=== PATIENT | male | born 1980 | race Caucasian/White ===

== ENCOUNTER 2017-02-25 10:21 | Emergency (ER) | payer SELFPAY ==
[~2017-02-25] VITALS: Ht 172.7 cm; Wt 115.5 kg
[~2017-02-25 10:21] MED LIST: ADVI200C9 PO; AMLO5TAB22 PO; ASPI325T PO; BACT800T5 PO; NOVO7030P2 SQ; NOVORP2 SQ
[2017-02-25 10:26] VITALS: BP 144/99; PULSE 95; RESP 16; TEMP 98.3; O2SAT 96
[2017-02-25] MEDS ORDERED: ACETAMINOPHEN/HYDROcodone 325 MG/5 MG TAB PO ONE (11:30)
--- NOTE | 2017-02-25 11:48 | PD ---
HPI Chief Complaint: Musculoskeletal Complaint Time Seen by Provider: 10:50 Travel History International Travel<30 days: No Contact w/Intl Traveler<30days: No Traveled to known affect area: No History of Present Illness HPI 36-year-old female arrives with left anterior chest wall pain after he fell while moving some objects with his friend yesterday. He has pleuritic pain in the area. It's worse while sleeping and with palpation in the ER. He denies shortness of breath at rest. No other injury to report. PFSH Past Medical History Arthritis: No Asthma: No Autoimmune Disease: No Blood Disorders: No Heart Rhythm Problems: No Cancer: No Cardiovascular Problems: No High Cholesterol: No Chemotherapy: No Chest Pain: No Congestive Heart Failure: No COPD: No Cerebrovascular Accident: No Diabetes: Yes Patient Takes Glucophage: No Diminished Hearing: No Endocrine: No Glaucoma: No Genitourinary: No Headaches: No Hepatitis: No Hiatal Hernia: No Hypertension: No Immune Disorder: No Kidney Stones: No Musculoskeletal: Yes Neurologic: No Respiratory: Yes Immunizations Current: Yes Migraines: No Myocardial Infarction: No Renal Failure: No Seizures: No Sickle Cell Disease: No Sleep Apnea: Yes Thyroid Disease: No Ulcer: No Influenza Vaccination: No Past Surgical History Surgical History: No Previous Surgery Abdominal Surgery: No AICD: No Arteriovenous Shunt: No Cardiac Surgery: No Cholecystectomy: No Eye Surgery: No Genitourinary Surgery: No Gynecologic Surgery: No Insulin Pump: No Joint Replacement: No Neurologic Surgery: No Pacemaker: No Thoracic Surgery: No Other Surgery: No Social History Alcohol Use: No Tobacco Use: No Substance Use: No Allergies-Medications (Allergen,Severity, Reaction): Coded Allergies: Penicillin (Verified Allergy, Severe, Anaphylaxis, 02/25/17) PT STATES HE IS NOT SURE WHAT REACTION WAS TO PCN. (ANAPHYLAXIS WAS ALREADY NOTED IN THE COMPUTER) Amoxicillin (Verified Allergy, Mild, Anaphylaxis, 02/25/17) Reported Meds & Prescriptions Reported Meds & Active Scripts Active No Active Prescriptions or Reported Medications Review of Systems General / Constitutional: No: Fever Physical Exam Narrative GENERAL: 36-year-old male pleasant well-nourished well-developed SKIN: Focused skin assessment warm/dry. CARDIOVASCULAR: Regular rate and rhythm. No murmur appreciated. Tenderness palpation left anterior chest wall. RESPIRATORY: No accessory muscle use. Clear to auscultation. Breath sounds equal bilaterally. GASTROINTESTINAL: Abdomen soft, non-tender, nondistended. Hepatic and splenic margins not palpable. MUSCULOSKELETAL: No obvious deformities. No clubbing. No cyanosis. No edema. NEUROLOGICAL: Awake and alert. No obvious cranial nerve deficits. Motor grossly within normal limits. Normal speech. Data Data Last Documented VS Vital Signs Date Time Temp Pulse Resp B/P Pulse Ox O2 Delivery O2 Flow Rate FiO2 02/25/17 10:26 98.3 95 16 144/99 96 Vital signs reviewed Orders Chest, Single Ap (02/25/17 ) Acetamin-Hydrocod 325-5 Mg ([place] 5-325 (02/25/17 11:30) Resp Incentive Spirometry (02/25/17 ) MDM Medical Decision Making Medical Screen Exam Complete: Yes Emergency Medical Condition: Yes Medical Record Reviewed: Yes Differential Diagnosis Rib fracture, rib contusion, pulmonary contusion, splenic injury Narrative Course Left anterior chest wall is minimally tender. There is no bruising or ecchymosis. Patient's vital signs are stable. Chest x-ray appears unremarkable. Lortab and incentive spirometer. Return precautions discussed. Diagnosis Primary Impression: Contusion of rib on left side Qualified Code: S20.212A - Contusion of rib on left side, initial encounter Referrals: Primary Care Physician 2 days Patient Instructions: General Instructions, Narcotic given in the ED Departure Forms: Tests/Procedures Additional Instructions: You have a choice when it comes to health care, and we are glad that you chose [facility]. Hopefully, we have met your expectations on today's visit. You are welcome to return to [facility] at any time, as we are committed to meeting the health care needs of our community. Med/Other Pt SpecificInfo: No Change to Meds Scripts No Active Prescriptions or Reported Meds Disposition: 01 DISCHARGE HOME Condition: Stable William Hua MD February 25, 2017 11:48
[2017-02-25] MEDS ORDERED: HYDR-3533 PO (11:49)
--- NOTE | 2017-02-25 11:54 | RADHPO ---
EXAM DATE/TIME: 02/25/2017 11:26 [place] COMPARISON: No previous studies available for comparison. INDICATIONS : Fall yesterday, left side rib pain. MEDICAL HISTORY : None. SURGICAL HISTORY : None. ENCOUNTER: Initial ACUITY: 2 days PAIN SCORE: 10/10 LOCATION: Left anterior ribs FINDINGS: A single view of the chest demonstrates the lungs to be symmetrically aerated without evidence of mas s, infiltrate or effusion. The cardiomediastinal contours are unremarkable. The osseous structures demonstrate a questionable nondisplaced fracture through the eighth lateral ri b on the left. If it is felt clinically warranted, oblique imaging could be performed for further ass essment. There is no pneumothorax. CONCLUSION: 1. No acute cardiopulmonary findings. 2. Possible nondisplaced left-sided rib fracture. William Agosto MD on February 25, 2017 at 11:51 Board Certified Radiologist. This report was verified electronically.
== END 2017-02-25 12:07 | disposition home or self-care (01) ==
LOC: PHEFT 10:21
DX: S20.212A Contusion of left front wall of thorax, initial encounter (principal); E11.9 Type 2 diabetes mellitus without complications; Z88.0 Allergy status to penicillin; W19.XXXA Unspecified fall, initial encounter
CPT/HCPCS: 71010; 94150; 99283

== ENCOUNTER 2017-08-03 20:03 | Observation (INO) | payer SELFPAY ==
[~2017-08-03] VITALS: Ht 175.3 cm; Wt 96.5 kg
[~2017-08-03 20:03] MED LIST changes: -ADVI200C9 PO; -AMLO5TAB22 PO; -ASPI325T PO; -BACT800T5 PO; +HYDR-3533 PO; -NOVO7030P2 SQ; -NOVORP2 SQ
[2017-08-03 21:00] VITALS: BP 139/72; PULSE 90; RESP 17; TEMP 99; O2SAT 98
[2017-08-03 21:15] VITALS: BP 151/83; PULSE 93; RESP 20; O2SAT 98
--- NOTE | 2017-08-03 21:25 | PD ---
HPI Chief Complaint: Diabetic Time Seen by Provider: 21:15 Travel History International Travel<30 days: No Contact w/Intl Traveler<30days: No Traveled to known affect area: No History of Present Illness HPI 36 years old male complains of lightheadedness and elevated blood sugar. Patient has history of insulin-dependent diabetes. Patient states that he ran out of insulin about a month ago. Patient denies any headache. Patient denies any chest pain or shortness of breath. Patient denies abdominal pain. Patient denies any nausea vomiting diarrhea. Patient denies any fever chills. Patient checked his blood sugar today at home and was in the 600 range. Patient also complains of blurring vision. PFSH Past Medical History Arthritis: No Asthma: No Autoimmune Disease: No Blood Disorders: No Heart Rhythm Problems: No Cancer: No Cardiovascular Problems: No High Cholesterol: No Chemotherapy: No Chest Pain: No Congestive Heart Failure: No COPD: No Cerebrovascular Accident: No Diabetes: Yes (Type 1) Diminished Hearing: No Endocrine: No Glaucoma: No Genitourinary: No Headaches: No Hepatitis: No Hiatal Hernia: No Hypertension: No Immune Disorder: No Kidney Stones: No Musculoskeletal: Yes Neurologic: No Respiratory: Yes Immunizations Current: Yes Migraines: No Myocardial Infarction: No Renal Failure: No Seizures: No Sickle Cell Disease: No Sleep Apnea: Yes Thyroid Disease: No Ulcer: No Past Surgical History Abdominal Surgery: No AICD: No Arteriovenous Shunt: No Cardiac Surgery: No Cholecystectomy: No Eye Surgery: No Genitourinary Surgery: No Gynecologic Surgery: No Insulin Pump: No Joint Replacement: No Neurologic Surgery: No Pacemaker: No Thoracic Surgery: No Other Surgery: No Social History Alcohol Use: No Tobacco Use: No Substance Use: No Allergies-Medications (Allergen,Severity, Reaction): Coded Allergies: amoxicillin (Unverified Allergy, Mild, Anaphylaxis, 08/03/17) Reported Meds & Prescriptions Reported Meds & Active Scripts Active Review of Systems General / Constitutional: No: Fever Eyes: Positive: Blurred Vision, No: Visual changes HENT: Positive: Lightheadedness, No: Headaches Cardiovascular: No: Chest Pain or Discomfort Respiratory: No: Shortness of Breath Gastrointestinal: No: Abdominal Pain Genitourinary: No: Dysuria Musculoskeletal: No: Pain Skin: No Rash Neurologic: No: Weakness Psychiatric: No: Depression Endocrine: No: Polydipsia Hematologic/Lymphatic: No: Easy Bruising Physical Exam Narrative GENERAL: Well-nourished, well-developed patient. SKIN: Focused skin assessment warm/dry. HEAD: Normocephalic. EYES: No scleral icterus. No injection or drainage. NECK: Supple, trachea midline. No JVD or lymphadenopathy. CARDIOVASCULAR: Regular rate and rhythm without murmurs, gallops, or rubs. RESPIRATORY: Breath sounds equal bilaterally. No accessory muscle use. GASTROINTESTINAL: Abdomen soft, non-tender, nondistended. MUSCULOSKELETAL: No cyanosis, or edema. BACK: Nontender without obvious deformity. No CVA tenderness. Neurologic exam normal. Data Data Last Documented VS Vital Signs Date Time Temp Pulse Resp B/P (MAP) Pulse Ox O2 Delivery O2 Flow Rate FiO2 08/03/17 21:37 20 08/03/17 21:15 93 151/83 (105) 98 08/03/17 21:00 99.0 Orders Orders Complete Blood Count With Diff (08/03/17 21:21) Comprehensive Metabolic Panel (08/03/17 21:21) Beta Hydroxybutyrate (Acetone) (08/03/17 21:21) Iv Access Insert/Monitor (08/03/17 21:21) Ecg Monitoring (08/03/17 21:21) Oximetry (08/03/17 21:21) Sodium Chlor 0.9% 1000 Ml Inj (Ns 1000 M (08/03/17 21:30) Acetaminophen (Tylenol) (08/03/17 21:45) Insulin Human Regular Inj (Novolin R Inj (08/03/17 22:00) Labs Laboratory Tests Test 08/03/17 21:20 White Blood Count 11.4 TH/MM3 Red Blood Count 4.59 MIL/MM3 Hemoglobin 14.6 GM/DL Hematocrit 42.1 % Mean Corpuscular Volume 91.6 FL Mean Corpuscular Hemoglobin 31.8 PG Mean Corpuscular Hemoglobin Concent 34.7 % Red Cell Distribution Width 12.0 % Platelet Count 356 TH/MM3 Mean Platelet Volume 8.9 FL Neutrophils (%) (Auto) 68.7 % Lymphocytes (%) (Auto) 24.3 % Monocytes (%) (Auto) 4.6 % Eosinophils (%) (Auto) 1.0 % Basophils (%) (Auto) 1.4 % Neutrophils # (Auto) 7.8 TH/MM3 Lymphocytes # (Auto) 2.8 TH/MM3 Monocytes # (Auto) 0.5 TH/MM3 Eosinophils # (Auto) 0.1 TH/MM3 Basophils # (Auto) 0.2 TH/MM3 CBC Comment DIFF FINAL Differential Comment Blood Urea Nitrogen 11 MG/DL Creatinine 1.30 MG/DL Random Glucose 605 MG/DL Total Protein 6.8 GM/DL Albumin 3.3 GM/DL Calcium Level 8.8 MG/DL Alkaline Phosphatase 120 U/L Aspartate Amino Transf (AST/SGOT) 11 U/L Alanine Aminotransferase (ALT/SGPT) 27 U/L Total Bilirubin 0.4 MG/DL Sodium Level 134 MEQ/L Potassium Level 3.8 MEQ/L Chloride Level 98 MEQ/L Carbon Dioxide Level 28.5 MEQ/L Anion Gap 8 MEQ/L Estimat Glomerular Filtration Rate 62 ML/MIN B-Hydroxybutyrate 0.08 MMOL/L MDM Medical Decision Making Medical Screen Exam Complete: Yes Emergency Medical Condition: Yes Interpretation(s) 22 48 PM. CBC within normal limit. CMP with sodium 134. Glucose 605. Bicarbonate 28.5. Beta hydroxy butyrate 0.08. Differential Diagnosis Differential diagnosis including hyperglycemia, DKA Narrative Course 36 years old male complains of lightheadedness, blurring vision and elevated blood sugar. Patient has history of insulin-dependent diabetes and ran out of insulin a month ago. Normal saline solution 1 L IV bolus. Novolin R, 10 units IV given. 10:45 PM. Accu-Chek blood sugar 331. Diagnosis Primary Impression: Hyperglycemia Admitting Information Admitting Physician Requests: Observation Andre Artis MD Aug 03, 2017 21:25
[2017-08-03] MEDS ORDERED: SODIUM CHLOR 0.9% 1000 ML INJ 1,000 ML IV ONE (21:30)
[2017-08-03 21:34] LABS: AUTOMATED NEUTROPHIL # 7.8 TH/MM3 (1.8-7.7); BASOPHIL # 0.2 TH/MM3 (0-0.2); BASOPHIL % 1.4 % (0.0-2.0); EOSINOPHIL # 0.1 TH/MM3 (0-0.4); HEMATOCRIT 42.1 % (39.0-51.0); HEMO FLAGS DIFF FINAL; LYMPH % 24.3 % (9.0-44.0); LYMPHOCYTE # 2.8 TH/MM3 (1.0-4.8); MEAN CELL VOLUME 91.6 FL (80.0-100.0); MEAN CORPUSCULAR HEMOGLOBIN 31.8 PG (27.0-34.0); MEAN CORPUSCULAR HGB CONC 34.7 % (32.0-36.0); MONO % 4.6 % (0.0-8.0); NEUT % 68.7 % (16.0-70.0); PLATELET COUNT 356 TH/MM3 (150-450); RED BLOOD COUNT 4.59 MIL/MM3 (4.50-5.90); WHITE BLOOD COUNT 11.4 TH/MM3 (4.0-11.0)
[2017-08-03 21:44] LABS: CHLORIDE 98 MEQ/L (98-107); POTASSIUM 3.8 MEQ/L (3.5-5.1); SODIUM (NA) 134 MEQ/L (136-145)
[2017-08-03] MEDS ORDERED: ACETAMINOPHEN 325 MG TAB PO ONE (21:45)
[2017-08-03 21:47] LABS: ANION GAP 8 MEQ/L (5-15); BICARBONATE 28.5 MEQ/L (21.0-32.0); BLOOD UREA NITROGEN 11 MG/DL (7-18)
[2017-08-03 21:50] LABS: ALT (GPT) 27 U/L (12-78); AST (GOT) 11 U/L (15-37); GLOMERULAR FILTRATION RATE 62 ML/MIN (>89)
[2017-08-03 21:52] LABS: TOTAL BILIRUBIN ADULT 0.4 MG/DL (0.2-1.0)
[2017-08-03] MEDS ORDERED: INSULIN HUMAN REGULAR 1,000 UNITS/10 ML VIAL IV PUSH ONE (22:00)
[2017-08-03 22:13] LABS: ALKALINE PHOSPHATASE 120 U/L (45-117)
[2017-08-03 22:14] LABS: BETA-HYDROXYBUTYRATE 0.08 MMOL/L (0.00-0.39)
[2017-08-03 22:30] VITALS: BP 138/79; PULSE 74; RESP 20; O2SAT 98
[2017-08-03] MEDS ORDERED: DEXTROSE 50% IN WATER 50 ML VIAL(D50) IV PUSH PRN (23:15)
[2017-08-03] MEDS ORDERED: SENNOSIDES 8.6 MG TAB PO PRN (23:15)
[2017-08-03] MEDS ORDERED: ACETAMINOPHEN 325 MG TAB PO PRN (23:15)
[2017-08-03] MEDS ORDERED: LACTULOSE SYRUP 20 GM/30 ML CUP PO PRN (23:15)
[2017-08-03] MEDS ORDERED: SODIUM CHLORIDE 0.9% FLUSH 10 ML FLUSH IV FLUSH PRN (23:15)
[2017-08-03] MEDS ORDERED: BISACODYL 10 MG SUPP RECTAL PRN (23:15)
[2017-08-03] MEDS ORDERED: INSULIN DETEMIR 100 UNITS/ML VIAL SQ ONE (23:15)
[2017-08-03] MEDS ORDERED: MAGNESIUM HYDROXIDE SUSP 30 ML CUP PO PRN (23:15)
[2017-08-03] MEDS ORDERED: ONDANSETRON HCL 4 MG/2 ML VIAL IVP PRN (23:15)
[2017-08-03] MEDS ORDERED: GLUCAGON 1 MG/ML VIAL OTHER PRN (23:15)
[2017-08-03] MEDS: SODIUM CHLOR 0.9% 1000 ML INJ 1,000 ML IV SCH (23:29)
[2017-08-04] VITALS: BP_SYST 139; BP_SYST 143; BP_DIAS 72; BP_DIAS 76; PULSE 96; RESP 20; TEMP 98.3; O2SAT 99
[2017-08-04] MEDS ORDERED: diphenhydrAMINE HCL 50 MG CAP PO ONE (01:00)
[2017-08-04 04:00] VITALS: BP 148/78; PULSE 73; RESP 20; TEMP 97.8; O2SAT 96
[2017-08-04] MEDS: SODIUM CHLOR 0.9% 1000 ML INJ 1,000 ML IV SCH (06:12)
[2017-08-04 07:50] VITALS: BP 154/93; PULSE 77; RESP 20; TEMP 97.5; O2SAT 100
[2017-08-04] MEDS: INSULIN ASPART SUPPLEMENTAL SCALE SQ SCH ×2 (08:25→12:41)
[2017-08-04 08:31] LABS: AUTOMATED NEUTROPHIL # 5.6 TH/MM3 (1.8-7.7); BASOPHIL # 0.1 TH/MM3 (0-0.2); BASOPHIL % 0.8 % (0.0-2.0); EOSINOPHIL # 0.2 TH/MM3 (0-0.4); EOSINOPHIL % 2.3 % (0.0-4.0); HEMATOCRIT 38.3 % (39.0-51.0); HEMO FLAGS DIFF FINAL; LYMPH % 27.9 % (9.0-44.0); LYMPHOCYTE # 2.4 TH/MM3 (1.0-4.8); MEAN CELL VOLUME 93.1 FL (80.0-100.0); MEAN CORPUSCULAR HEMOGLOBIN 31.3 PG (27.0-34.0); MEAN CORPUSCULAR HGB CONC 33.6 % (32.0-36.0); MONO % 4.6 % (0.0-8.0); NEUT % 64.4 % (16.0-70.0); PLATELET COUNT 249 TH/MM3 (150-450); RED BLOOD COUNT 4.11 MIL/MM3 (4.50-5.90); RED CELL DISTRIBUTION WIDTH 12.3 % (11.6-17.2); WHITE BLOOD COUNT 8.7 TH/MM3 (4.0-11.0)
[2017-08-04 08:59] LABS: ALKALINE PHOSPHATASE 95 U/L (45-117); ALT (GPT) 22 U/L (12-78); ANION GAP 6 MEQ/L (5-15); AST (GOT) 10 U/L (15-37); BICARBONATE 27.1 MEQ/L (21.0-32.0); BLOOD UREA NITROGEN 11 MG/DL (7-18); CHLORIDE 107 MEQ/L (98-107); GLOMERULAR FILTRATION RATE 126 ML/MIN (>89); POTASSIUM 3.5 MEQ/L (3.5-5.1); SODIUM (NA) 140 MEQ/L (136-145); TOTAL BILIRUBIN ADULT 0.6 MG/DL (0.2-1.0)
[2017-08-04] MEDS ORDERED: SODIUM CHLORIDE 0.9% FLUSH 10 ML FLUSH IV FLUSH SCH (09:00)
[2017-08-04] MEDS ORDERED: DOCUSATE SODIUM 50 MG/SENNA 8.6 MG TAB PO SCH (09:00)
--- NOTE | 2017-08-04 11:53 | HHI.HP ---
[facility] Primary Care Physician No Primary Care Physician Admission Diagnosis hyperglycemia Diagnoses: (1) Insulin dependent diabetes mellitus Diagnosis: Principal (2) Hyperglycemia Diagnosis: Principal Chief Complaint: "Blood sugar 600" Travel History International Travel<30 Days: No Contact w/Intl Traveler <30 Da: No Traveled to Known Affected Are: No History of Present Illness 36-year-old male with history of insulin-dependent diabetes mellitus admitted for hyperglycemia. The patient states he ran out of insulin one month ago. Admits to feeling lethargic, weak, having blurred vision for a couple of weeks but symptoms became worse yesterday hence why he came in. He states his blood sugar was 600 yesterday. Admits to having had lightheadedness and dizziness. He states he had 2 episodes of vomiting yesterday but denies any hematemesis. Admits to increased urinary frequency but denies polydipsia. Denies any headaches, recent fevers or chills, cold symptoms, chest pain or shortness of breath, abdominal pain, nausea, diarrhea, constipation. He admits to resolution of symptoms at this time and would like to leave. He does not have insurance or primary care physician. He states he has been receiving his insulin [id number] from [employer]. Patient states his blood glucose was controlled on prior regimen listed in medications. Review of Systems Except as stated in HPI: all other systems reviewed are Neg Past Family Social History Past Medical History Insulin-dependent diabetes mellitus. Patient states he was diagnosed a couple of years ago. EMR indicates patient is a type I diabetic. H/o prior hospitalization for DKA. Past Surgical History No surgeries Reported Medications Novolin 70/30 80 units Novolin R 15-20 units depending on blood glucose level Allergies: Coded Allergies: amoxicillin (Unverified Allergy, Mild, Anaphylaxis, 08/03/17) Family History Patient has a twin who is not a diabetic. He also has a sister. He does not know their medical history. He does not know his mother's or father's medical history. Social History Dips and smokes a couple cigarettes per day. Denies alcohol use. Denies history of illicit drug use. Physical Exam Vital Signs Vital Signs Date Time Temp Pulse Resp B/P (MAP) Pulse Ox O2 Delivery O2 Flow Rate FiO2 08/04/17 07:50 97.5 77 20 154/93 (113) 100 08/04/17 04:00 97.8 73 20 148/78 (101) 96 08/04/17 00:12 08/04/17 00:00 98.3 96 20 143/76 (98) 99 08/04/17 00:00 74 20 139/72 (94) 98 08/03/17 22:30 74 20 138/79 (98) 98 08/03/17 21:37 20 08/03/17 21:15 93 20 151/83 (105) 98 08/03/17 21:00 99.0 90 17 139/72 (94) 98 Physical Exam GENERAL: This is an overweight, well-developed patient, in no apparent distress. SKIN: No rashes, ecchymoses or lesions. Warm and dry. HEAD: Normocephalic. EYES: Pupils normal. Visual menendez intact bilaterally. CARDIOVASCULAR: Regular rate and rhythm without murmurs, gallops, or rubs. RESPIRATORY: Clear to auscultation. Breath sounds equal bilaterally. No wheezes , rales, or rhonchi. GASTROINTESTINAL: Abdomen soft, non-tender, nondistended. No guarding. MUSCULOSKELETAL: No lower extremity edema bilaterally. NEUROLOGICAL: Awake and alert. No cranial nerve deficits noted. Motor grossly within normal limits. Five out of 5 muscle strength in B/L upper and lower extremities. Normal speech. PSYCHIATRIC: Rude mood. Laboratory Laboratory Tests Test 08/03/17 21:20 08/04/17 07:07 White Blood Count 11.4 8.7 Red Blood Count 4.59 4.11 Hemoglobin 14.6 12.9 Hematocrit 42.1 38.3 Mean Corpuscular Volume 91.6 93.1 Mean Corpuscular Hemoglobin 31.8 31.3 Mean Corpuscular Hemoglobin Concent 34.7 33.6 Red Cell Distribution Width 12.0 12.3 Platelet Count 356 249 Mean Platelet Volume 8.9 9.9 Neutrophils (%) (Auto) 68.7 64.4 Lymphocytes (%) (Auto) 24.3 27.9 Monocytes (%) (Auto) 4.6 4.6 Eosinophils (%) (Auto) 1.0 2.3 Basophils (%) (Auto) 1.4 0.8 Neutrophils # (Auto) 7.8 5.6 Lymphocytes # (Auto) 2.8 2.4 Monocytes # (Auto) 0.5 0.4 Eosinophils # (Auto) 0.1 0.2 Basophils # (Auto) 0.2 0.1 CBC Comment DIFF FINAL DIFF FINAL Differential Comment Blood Urea Nitrogen 11 11 Creatinine 1.30 0.71 Random Glucose 605 286 Total Protein 6.8 5.8 Albumin 3.3 2.8 Calcium Level 8.8 8.2 Alkaline Phosphatase 120 95 Aspartate Amino Transf (AST/SGOT) 11 10 Alanine Aminotransferase (ALT/SGPT) 27 22 Total Bilirubin 0.4 0.6 Sodium Level 134 140 Potassium Level 3.8 3.5 Chloride Level 98 107 Carbon Dioxide Level 28.5 27.1 Anion Gap 8 6 Estimat Glomerular Filtration Rate 62 126 B-Hydroxybutyrate 0.08 Result Diagram: 08/04/1770608/04/17706 Caprini VTE Risk Assessment Caprini VTE Risk Assessment: No/Low Risk (score <= 1) Caprini Risk Assessment Model Point Value = 1 Point Value = 2 Point Value = 3 Point Value = 5 Age 41-60 Minor surgery BMI > 25 kg/m2 Swollen legs Varicose veins or History of unexplained or recurrent spontaneous Oral contraceptives or hormone replacement Sepsis (< 1 month) Serious lung disease, including pneumonia (< 1 month) Abnormal pulmonary function Acute myocardial infarction Congestive heart failure (< 1 month) History of inflammatory bowel disease Medical patient at bed rest Age 61-74 Arthroscopic surgery Major open surgery (> 45 min) Laparoscopic surgery (> 45 min) Malignancy Confined to bed (> 72 hours) Immobilizing plaster cast Central venous access Age >= 75 History of VTE Family history of VTE Factor V Leiden Prothrombin [id number] Lupus anticoagulant Anticardiolipin antibodies Elevated serum homocysteine Heparin-induced thrombocytopenia Other congenital or acquired thrombophilia Stroke (< 1 month) Elective arthroplasty Hip, pelvis, or leg fracture Acute spinal cord injury (< 1 month) Prophylaxis Regimen Total Risk Factor Score Risk Level Prophylaxis Regimen 0-1 Low Early ambulation 2 Moderate Order ONE of the following: *Sequential Compression Device (SCD) *Heparin 5000 units SQ BID 3-4 Higher Order ONE of the following medications: *Heparin 5000 units SQ TID *Enoxaparin/Lovenox 40 mg SQ daily (WT < 150 kg, CrCl > 30 mL/min) *Enoxaparin/Lovenox 30 mg SQ daily (WT < 150 kg, CrCl > 10-29 mL/min) *Enoxaparin/Lovenox 30 mg SQ BID (WT < 150 kg, CrCl > 30 mL/min) AND/OR *Sequential Compression Device (SCD) 5 or more Highest Order ONE of the following medications: *Heparin 5000 units SQ TID (Preferred with Epidurals) *Enoxaparin/Lovenox 40 mg SQ daily (WT < 150 kg, CrCl > 30 mL/min) *Enoxaparin/Lovenox 30 mg SQ daily (WT < 150 kg, CrCl > 10-29 mL/min) *Enoxaparin/Lovenox 30 mg SQ BID (WT < 150 kg, CrCl > 30 mL/min) AND *Sequential Compression Device (SCD) Assessment and Plan Assessment and Plan 36 year old male presented with blurred vision, dizziness, lethargy, vomiting. IDDM with hyperglycemia: Ran out of insulin 1 month ago. EMR indicates patient is Type 1 diabetic. BGL 605 in ED. Electrolytes normal. Mild leukocytosis resolved this morning. Mild pseudohyponatremia resolved this morning. Beta hydroxybutyrate normal. Given 10 units Regular insulin IV in ED and 10 units of Levemir last night. BGL still elevated but improved this morning. He ate breakfast this morning and is currently asymptomatic. -Bedside Accu-checks with SSI -IVF, can discontinue -Hemoglobin A1c pending. -Patient was educated. He was advised not to wait till he has symptoms to get medication as he will put himself at risk of DKA; he was informed he could from this. He states he did not want to come to the ER just for refill. I told him he needs to follow with a primary care physician so he does not need to utilize the ER. He states he does not have a job nor a PCP. I told him he could at least go to an urgent care to get refills before his sugar becomes significantly elevated. He already obtains his insulin OTC at [facility] and there is suspicion that patient may not have been able to afford this hence why he went a month without it. He has had DKA before, but does not seem concerned about the importance of managing his diabetes. DVT prophylaxis: OOB ad radha. Case management consulted. Blue card can only be acquired tomorrow. I would prefer to place patient on Levemir or Lantus bid but patient will not wait for substitute nurse to bring prescriptions from inpatient pharmacy at [facility] today even though it would be free. Discussed with Dr. Green. Will instead prescribe Novolin 70/30 15 units bid as it is cheaper. Patient states he will obtain this from [facility] today. Will additionally prescribe Novolog low dose SSI. Prescriptions for diabetic supplies provided. junior project manager has provided list to patient of primary care providers with whom he can follow up. Patient likely to be non-compliant. Discharge disposition: Home in stable condition. Diet: Diabetic, weight mgmt Activity: Regular Medications: prescriptions for insulin Follow up: PCP 1 week. Discussed Condition With Dr. Green, attending. Ana Vargas Aug 04, 2017 11:53
[2017-08-04] MEDS ORDERED: NOVOLOGP2 SQ (11:59)
[2017-08-04] MEDS ORDERED: LEVEMIR SQ (11:59)
[2017-08-04] MEDS ORDERED: LANCETS1 MI1 (12:23)
[2017-08-04] MEDS ORDERED: BLOO1EAC16 (12:23)
[2017-08-04] MEDS ORDERED: BLOOD GLUCOSE T1 TES (12:23)
[2017-08-04] MEDS ORDERED: NOVO7030P2 SQ (12:23)
[2017-08-04] MEDS ORDERED: INSU-116 (12:23)
[2017-08-04] MEDS ORDERED: INSU1MIS (12:28)
--- NOTE | 2017-08-04 12:29 | HHI.DCPOC ---
Discharge Care Plan Diagnosis: (1) Hyperglycemia (2) Insulin dependent diabetes mellitus Your Health Problems Are: Fluctuating Blood Sugars Goals to Promote Your Health * To prevent worsening of your condition and complications * To maintain your health at the optimal level Directions to Meet Your Goals Take your medications as prescribed Follow your dietary instruction Follow activity as directed Keep your appointments as scheduled Take your immunizations and boosters as scheduled If your symptoms worsen call your PCP, if no PCP go to Urgent Care Center or Emergency Room Smoking is Dangerous to Your Health. Avoid second hand smoke Call the 24-hour hour crisis hotline for domestic abuse at Ana Vargas Aug 04, 2017 12:29
[2017-08-05 16:30] LABS: HEMOGLOBIN A1a 1.4 %; HEMOGLOBIN A1b 0.9 %; HEMOGLOBIN Ao 78.8 %; HEMOGLOBIN F 1.7 %; HEMOGLOBIN LA1C 2.2 %; HEMOGLOBIN P3 4.4 %
== END 2017-08-04 13:03 | disposition home or self-care (01) ==
LOC: PHED 20:03 → PHEDA 22:53 → PH3B 23:47
PROVIDERS: ADMIT Family Medicine; ATTEND Family Medicine
DX: E10.65 Type 1 diabetes mellitus with hyperglycemia (principal); D72.829 Elevated white blood cell count, unspecified; G47.30 Sleep apnea, unspecified; F17.210 Nicotine dependence, cigarettes, uncomplicated; Z91.19 Patient's noncompliance with other medical treatment and regimen; Z79.4 Long term (current) use of insulin
CPT/HCPCS: 80053; 82010; 82948; 83036; 85025; 96360; 96361; 96372; 99285; G0378; J1815; J7030; Q0163